=== PATIENT | female | born 1940 | race Caucasian/White ===

== ENCOUNTER 2016-12-31 06:57 | Inpatient (IN) | payer MEDICARE, OTHER ==
--- NOTE | 2016-12-25 19:18 | HP ---
HISTORY AND PHYSICAL: DATE OF ADMISSION/SURGERY: 12/31/16 DATE OF OFFICE VISIT: 12/25/16 SURGEON: Jillian Aguilar MD. PROCEDURE: Left total knee arthroplasty. CHIEF COMPLAINT: Left knee pain. HISTORY OF PRESENT ILLNESS: Ms. Estrada is a 76-year-old female with complaints of left knee pain secondary to advanced osteoarthritis. She has failed conservative management and has elected to proceed with a left total knee arthroplasty which is scheduled for 12/31/[address] Aguilar. PAST MEDICAL HISTORY: 1. Hypertension. 2. High cholesterol. 3. GERD. 4. Renal insufficiency. 5. Osteoporosis. 6. Heart murmur. PAST SURGICAL HISTORY: 1. Cataract removal. 2. Right total knee arthroplasty. 3. Left knee arthroscopy. 4. Cholecystectomy. CURRENT MEDICATIONS: 1. Diovan 80 mg once daily. 2. Clobetasol propionate emollient as needed. 3. Aspirin 81 mg daily. 4. Calcium with vitamin D daily. 5. Omeprazole 20 mg daily. 6. Multivitamin. ALLERGIES: STATINS, IBUPROFEN, CYCLOBENZAPRINE, TRAMADOL, and FLEXERIL. FAMILY HISTORY: Heart disease, diabetes, and breast cancer. SOCIAL HISTORY: She is a 76-year-old female. She lives alone. She does not smoke or use drugs. Uses occasional alcohol. REVIEW OF SYSTEMS: A complete 14-point review of systems was reviewed with the patient, was all negative or noncontributory. PHYSICAL EXAMINATION GENERAL: She is well developed, well nourished, in no acute distress. VITAL SIGNS: She stands 5 feet 4 inches tall, weighs 158 pounds. Her blood pressure is 160/75. Her heart rate is 61. HEENT: Normocephalic, atraumatic. NECK: Supple. No palpable lymph nodes. PULMONARY: The lungs are clear to auscultation bilaterally. CARDIO: Regular rate and rhythm. Strong S1, S2. ABDOMEN: Soft, nontender, nondistended. NEUROLOGICAL: She is alert and oriented x3. Cranial nerves II through XII are intact. MUSCULOSKELETAL: Left lower extremity: The skin is intact. There are no open wounds or abrasions. She has a moderate joint effusion, 10 to 130 degrees of flexion, 15 degrees valgus deformity. No varus or valgus instability, but there is MCL laxity. Her lower extremity muscle group strengths are intact at 5 /5. She has 2+ dorsalis pedis pulses and intact sensation. ASSESSMENT AND PLAN: Ms. Estrada is a 76-year-old female with complaints of left knee pain secondary to valgus-type arthritis of the left knee. She has failed conservative management and has elected to proceed with a left total knee arthroplasty which is scheduled for 12/31/[address] Aguilar discussed the risks and benefits of the surgery at today's visit and all of her questions were answered. Coumadin, Percocet, and Colace were sent to her pharmacy for postoperative pain control and DVT prophylaxis. She will see Dr. Aguilar back in 2 weeks following her surgery. LAUREL JONES [id number]/[facility] #: [id number] MTDD
[~2016-12-31 06:57] MED LIST: Buffered Lidocaine 0.9% SYRIN* 5 ML/SYR SYRINGE INTRADERM ONE; Famotidine IV* 10 MG/ML 2 ML (20 mg) IV ONE; Gabapentin CAP(*) 300 MG PO ONE
[2016-12-31] MEDS ORDERED: Famotidine IV* 10 MG/ML 2 ML (20 mg) ONE (07:11)
[2016-12-31] MEDS ORDERED: ceFAZolin 2 GM PREMIX(*) 2 GM/50 ML BAG IVPB ONE (07:11)
[2016-12-31] MEDS ORDERED: Gabapentin CAP(*) 300 MG ONE (07:11)
[2016-12-31] MEDS ORDERED: Midazolam* 1 MG/ML 5 ML VIAL (5 MG) ONE (08:01)
[2016-12-31] MEDS ORDERED: KETAMINE HCL* 50 MG/ML 10 ML VIAL ONE (08:01)
[2016-12-31] MEDS ORDERED: fentaNYL* 50 MCG/ML 2 ML VIAL (100 MCG VIAL) ONE (08:01)
[2016-12-31] MEDS ORDERED: Morphine PF AMP (0.5MG/ML)* 5 MG/10 ML AMP ONE (08:17)
[2016-12-31] MEDS ORDERED: Dexamethasone IV* 4 MG/ML 1 ML (4 MG) ONE (08:49)
[2016-12-31] MEDS ORDERED: ROPIVACAINE 5 MG/ML 30 ML BTL (0.5%) ONE (08:49)
[2016-12-31] MEDS ORDERED: Propofol* 10 MG/ML 20 ML BTL IV PUSH ONE ×2 (08:49→09:55)
[2016-12-31] MEDS ORDERED: Ondansetron INJ* 2 MG/ML VIAL ONE (08:49)
[2016-12-31] MEDS ORDERED: Phenylephrine IV* 40 MCG/ML 10 ML SYRINGE ONE (08:49)
[2016-12-31] MEDS ORDERED: Lidocaine 2% PF * 5 ML VIAL ONE (08:49)
[2016-12-31] MEDS ORDERED: Glycopyrrolate IV* 0.2 MG/ML 1 ML VIAL ONE (09:13)
[2016-12-31] MEDS ORDERED: DiMENhydriNATE IV* 50 MG/ML VIAL IV PUSH PRN (09:36)
[2016-12-31] MEDS ORDERED: HYDROmorphone* 1 MG/ML 1 ML SYR IV PRN (09:36)
[2016-12-31] MEDS ORDERED: Acetaminophen IV 1GM/100ML * 100 ML IVPB ONE (09:36)
[2016-12-31] MEDS ORDERED: oxyCODONE TAB* 5 MG TAB PO PRN ×2 (09:36→09:39)
[2016-12-31] MEDS ORDERED: Gabapentin CAP(*) 100 MG PO ONE (09:37)
[2016-12-31] MEDS ORDERED: Ondansetron INJ* 2 MG/ML VIAL IV PRN ×2 (09:39→11:00)
[2016-12-31] MEDS ORDERED: Naloxone* 0.4 MG/ML 1 ML VIAL IV PRN (09:39)
[2016-12-31] MEDS ORDERED: Nalbuphine* 20 MG/ML 1 ML VIAL IV PRN (09:39)
[2016-12-31] MEDS ORDERED: Polyethylene Glycol 3350* 17 GM PACKET PO PRN (11:00)
[2016-12-31] MEDS ORDERED: Magnesium Hydroxide LIQ* 30 ML UDC PO PRN (11:00)
[2016-12-31] MEDS ORDERED: oxyCODONE/Acetamin 5/325 MG* TAB PO PRN (11:00)
[2016-12-31] MEDS ORDERED: Acetaminophen TAB* 325 MG PO PRN (11:00)
[2016-12-31] MEDS ORDERED: diPHENhydraMINE IV* 50 MG/ML 1 ml VIAL (BENADRYL) IV PRN (11:00)
[2016-12-31] MEDS ORDERED: Bisacodyl SUPP* 10 MG SUPP PR PRN (11:00)
[2016-12-31] MEDS ORDERED: Morphine INJ* 2 MG/ML 1 ML SYRINGE IV PRN (11:00)
[2016-12-31] MEDS ORDERED: Gabapentin CAP(*) 100 MG ONE (11:17)
[2016-12-31] MEDS ORDERED: Acetaminophen IV 1GM/100ML * 100 ML ONE (11:18)
--- NOTE | 2016-12-31 11:38 | RAD ---
HISTORY: Status post left total knee plasty COMPARISONS: None VIEWS: 3, Frontal and lateral views of the left knee FINDINGS: BONE DENSITY: Normal. BONES: The patient is status post left knee arthroplasty. There is no hardware failure or osteolysis. JOINTS: The patient is status post left knee arthroplasty ALIGNMENT: There is no dislocation. SOFT TISSUES: Unremarkable. OTHER FINDINGS: There is post surgical change to the soft tissue IMPRESSION: STATUS POST LEFT KNEE ARTHROPLASTY
--- NOTE | 2016-12-31 11:43 | CONSULT ---
Subjective Date of Service: 12/31/16 Interval History: Patient seen this morning in PACU after surgery. Aside from feeling drowsy she has no complaints, not currently in any pain. In days leading up to surgery she reports she had been doing well aside from L knee and R hip pain. Family History: Findings - CAD, DM Social History: Findings - Lives at home alone, uses a cane at times, no tobacco , EtOH, drug abuse Past Medical History: Findings - HTN, HLD, GERD, renal insufficiency Review of Systems - Measurements Intake and Output: Intake and Output Last 24 Hours 12/29/16 12/30/16 12/31/16 01/01/17 06:59 06:59 06:59 06:59 Intake Total 1750 Output Total 500 Balance 1250 Weight 71.214 kg Intake: IV Fluids 1750 LR 1750 Output: Villalba 300 Estimated Blood Loss 200 - Review of Systems Constitutional Symptoms: Negative: Fever, Night Sweats Dermatology: Positive: Normal HEENT: Positive: Normal Eyes: Positive: Normal Thyroid: Positive: Normal Pulmonary: Positive: Normal Cardiology: Positive: Normal Gastroenterology: Positive: Normal Genital - Urinary: Positive: Normal Musculoskeletal: Positive: Joint Pain, Arthritis Endocrinology: Positive: Normal Neurology: Positive: Normal Psychiatry: Positive: Normal Objective Active Medications: Acetaminophen (Tylenol Tab*) 650 mg PO Q4H GIDEON Acetaminophen (Tylenol Tab*) 650 mg PO Q4H PRN Bisacodyl (Dulcolax Supp*) 10 mg [place] DAILY PRN Dimenhydrinate (Dramamine Iv*) 12.5 mg IV PUSH ONCE PRN Diphenhydramine HCl (Benadryl Iv*) 12.5 mg IV Q6H PRN Docusate Sodium (Colace Cap*) 100 mg PO BID GIDEON Enoxaparin Sodium (Lovenox(*)) 30 mg SUBCUT Q24H [facility] Famotidine (Pepcid Iv*) 20 mg IV ONCE ONE Gabapentin (Neurontin Cap(*)) 300 mg PO ONCE ONE Gabapentin (Neurontin Cap(*)) 100 mg PO ONCE ONE Hydromorphone HCl (Dilaudid Iv*) 0.2 mg IV Q5M PRN Lactated Ringer's (Lactated Ringers 1000 Ml Bag*) 1,000 mls @ 125 mls/hr IV PER RATE GIDEON Acetaminophen (Ofirmev*) 100 mls @ 400 mls/hr IVPB ONCE ONE Cefazolin Sodium 1 gm/ Sodium (Chloride) 50 mls @ 200 mls/hr IVPB Q8H GIDE[facility] Lactated Ringer's (Lactated Ringers 1000 Ml Bag*) 1,000 mls @ 100 mls/hr IV PER RATE GIDEON Lactulose (Lactulose*) 30 ml PO Q6H PRN Lidocaine/Sodium Bicarbonate (Buffered Lidocaine 0.9% Syrin*) 0.2 ml INTRADERM ONCE ONE Magnesium Hydroxide (Milk Of Magnesia Liq*) 30 ml PO Q6H PRN Morphine Sulfate (Morphine Inj (Syringe)*) 2 mg IV Q2H PRN Nalbuphine HCl (Nubain*) 5 mg IV Q6H PRN Naloxone HCl (Narcan*) 0.08 mg IV Q2M PRN Omeprazole (Prilosec Cap*) 20 mg PO QAM [facility] Ondansetron HCl (Zofran Inj*) 4 mg IV Q6H PRN Ondansetron HCl (Zofran Inj*) 4 mg IV Q6H PRN Oxycodone HCl (Roxycodone Tab*) 5 mg PO ONCE PRN Oxycodone HCl (Roxycodone Tab*) 5 mg PO Q4H PRN Oxycodone HCl (Roxycodone Tab*) 10 mg PO Q4H PRN Oxycodone/Acetaminophen (Percocet 5/325 Tab*) 1 tab PO Q3H PRN Oxycodone/Acetaminophen (Percocet 5/325 Tab*) 2 tab PO Q3H PRN Polyethylene Glycol/Electrolytes (Miralax*) 17 gm PO DAILY PRN Valsartan (Diovan Tab*) 80 mg PO QAM [facility] Warfarin Sodium (Coumadin Tab(*)) 6 mg PO ONCE@1700 ONE Vital Signs 12/31/16 12/31/16 12/31/16 07:46 11:00 11:05 Temperature 97.5 F 97.9 F Pulse Rate 66 76 64 Respiratory 18 16 12 Rate Blood Pressure 140/70 121/44 119/51 (mmHg) O2 Sat by Pulse 96 98 97 Oximetry 12/31/16 12/31/16 12/31/16 11:10 11:15 11:30 Temperature Pulse Rate 60 57 53 Respiratory 12 12 10 Rate Blood Pressure 124/55 117/60 120/52 (mmHg) O2 Sat by Pulse 99 98 98 Oximetry Oxygen Devices in Use Now: Nasal Cannula Appearance: Elderly, F, laying in bed in NAD Eyes: No Scleral Icterus Ears/Nose/Mouth/Throat: - - Dry MM Neck: NL Appearance and Movements; NL JVP Respiratory: Symmetrical Chest Expansion and Respiratory Effort, Clear to Auscultation Cardiovascular: NL Sounds; No Murmurs; No JVD, - - mild bradycardia Abdominal: NL Sounds; No Tenderness; No Distention Lymphatic: No Cervical Adenopathy Extremities: No Edema, - - L knee with dressing and cryounit in place, able to move L foot Skin: No Rash or Ulcers Neurological: Alert and Oriented x 3 Assessment/Plan - Billing S/P L TKA in a 76 yo F with hx of HTN, HLD, GERD, renal insufficiency 1) L TKA - management and analgesia as per ortho - warfarin started 2) HTN - hold Losartan for now, can resume tomorrow if BPs will tolerate 3) Renal insufficiency - baseline creatinine seems to be between 1-1.2 - BMP in AM 4) GERD - continue home PPI 5) DVT PPx - Lovenox/Warfarin
[2016-12-31] MEDS: Acetaminophen TAB* 325 MG PO SCH ×3 (15:29→21:09)
[2016-12-31] MEDS: ceFAZolin VIAL(*) 1 GM in NS 0.9% 50 ML* 50 ML IVPB SCH (16:54)
[2016-12-31] MEDS ORDERED: Warfarin TAB(*) 6 MG PO ONE (17:00)
[2016-12-31] MEDS: Docusate CAP* 100 MG PO SCH (21:09)
[2017-01-01] MEDS: ceFAZolin VIAL(*) 1 GM in NS 0.9% 50 ML* 50 ML IVPB SCH ×2 (00:15→08:42)
[2017-01-01] MEDS: oxyCODONE TAB* 5 MG TAB PO PRN ×2 (00:20→23:38)
[2017-01-01] MEDS: oxyCODONE/Acetamin 5/325 MG* TAB PO PRN ×4 (04:02→19:10)
[2017-01-01 06:17] LABS: Hematocrit 27 % (35-47); Hemoglobin 9.2 g/dl (12.0-16.0)
[2017-01-01 06:31] LABS: BUN/Creatinine Ratio 23.8 (8-20); Calcium 8.5 mg/dL (8.6-10.3); EGFR African American 68.2 (>60); Potassium 4.1 mmol/L (3.5-5.0)
--- NOTE | 2017-01-01 06:47 | PN ---
Progress Note - Progress Note Date of Service: 01/01/17 SOAP: Subjective: Pt. reports pain is controlled, and she sat up last night. Objective: LLE - drain removed, tip intact. dressing c/d/i. distally nvi. Vital Signs: Temp Pulse Resp BP Pulse Ox 97.7 F 59 16 120/47 99 01/01/17 03:51 01/01/17 03:51 01/01/17 06:02 01/01/17 03:51 01/01/17 03:51 Laboratory Results - last 24 hr 01/01/17 01/01/17 01/01/17 05:39 05:39 05:39 Hgb 9.2 L Hct 27 L INR (Anticoag Therapy) 1.06 Sodium 135 Potassium 4.1 Chloride 105 Carbon Dioxide 27 Anion Gap 3 BUN 24 Creatinine 1.01 H Est GFR ( Amer) 68.2 Est GFR (Non-Af Amer) 53.0 BUN/Creatinine Ratio 23.8 H Glucose 98 Calcium 8.5 L Assessment: 76 yo F pod 1 s/p LTKA Plan: wbat lle pt/ot 8 mg coumadin tonight, lovenox this am plan d/c to home with vns services
[2017-01-01] MEDS: Enoxaparin(*) 30 MG/0.3 ML SYR SUBCUT SCH (07:33)
[2017-01-01] MEDS: Docusate CAP* 100 MG PO SCH ×2 (08:43→20:14)
[2017-01-01] MEDS: Omeprazole CAP* 20 MG PO SCH (08:43)
--- NOTE | 2017-01-01 08:45 | PN ---
Subjective Date of Service: 01/01/17 Interval History: Patient seen this morning. Feeling well this morning. Some pain in L knee but controlled with PO medications. Had some N/V last night but tolerated breakfast today. Has had issues with constipation with narcotics in the past. Family History: Unchanged from Admission Social History: Unchanged from Admission Past Medical History: Unchanged from Admission Objective Active Medications: Acetaminophen (Tylenol Tab*) 650 mg PO Q4H PRN PRN Reason: PAIN OR TEMPERATURE Bisacodyl (Dulcolax Supp*) 10 mg [place] DAILY PRN PRN Reason: constipation Diphenhydramine HCl (Benadryl Iv*) 12.5 mg IV Q6H PRN PRN Reason: PRURITIS Docusate Sodium (Colace Cap*) 100 mg PO BID [facility] Last Admin: 12/31/16 21:09 Dose: 100 mg Enoxaparin Sodium (Lovenox(*)) 30 mg SUBCUT Q24H [facility] Last Admin: 01/01/17 07:33 Dose: 30 mg Cefazolin Sodium 1 gm/ Sodium (Chloride) 50 mls @ 200 mls/hr IVPB Q8H [facility] Stop: 01/01/17 08:44 Last Admin: 01/01/17 00:15 Dose: 200 mls/hr Lactated Ringer's (Lactated Ringers 1000 Ml Bag*) 1,000 mls @ 100 mls/hr IV PER RATE [facility] Last Admin: 12/31/16 23:05 Dose: 100 mls/hr Lactulose (Lactulose*) 30 ml PO Q6H PRN PRN Reason: constipation Magnesium Hydroxide (Milk Of Magnesia Liq*) 30 ml PO Q6H PRN PRN Reason: constipation Morphine Sulfate (Morphine Inj (Syringe)*) 2 mg IV Q2H PRN PRN Reason: PAIN Omeprazole (Prilosec Cap*) 20 mg PO QAM [facility] Ondansetron HCl (Zofran Inj*) 4 mg IV Q6H PRN PRN Reason: nausea Oxycodone HCl (Roxycodone Tab*) 10 mg PO Q4H PRN PRN Reason: SEVERE PAIN Last Admin: 01/01/17 00:20 Dose: 10 mg Oxycodone/Acetaminophen (Percocet 5/325 Tab*) 1 tab PO Q3H PRN PRN Reason: PAIN - MODERATE Oxycodone/Acetaminophen (Percocet 5/325 Tab*) 2 tab PO Q3H PRN PRN Reason: PAIN - MODERATE Last Admin: 01/01/17 07:31 Dose: 2 tab Pharmacy Profile Note (Coumadin Daily Reminder*) 1 note FOLLOW UP 1700 GIDEON Polyethylene Glycol/Electrolytes (Miralax*) 17 gm PO DAILY PRN PRN Reason: Constipation Warfarin Sodium (Coumadin Tab(*)) 8 mg PO ONCE@1700 ONE PRN Reason: Protocol Stop: 01/01/17 17:01 Vital Signs 12/31/16 12/31/16 12/31/16 11:00 11:05 11:10 Temperature 97.9 F Pulse Rate 76 64 60 Respiratory 16 12 12 Rate Blood Pressure 121/44 119/51 124/55 (mmHg) O2 Sat by Pulse 98 97 99 Oximetry 01/01/17 01/01/17 01/01/17 02:20 03:51 04:02 Temperature 97.7 F Pulse Rate 59 Respiratory 16 16 16 Rate Blood Pressure 120/47 (mmHg) O2 Sat by Pulse 99 Oximetry 01/01/17 01/01/17 01/01/17 06:02 07:24 07:31 Temperature 97.6 F Pulse Rate 68 Respiratory 16 16 16 Rate Blood Pressure 109/46 (mmHg) O2 Sat by Pulse 96 Oximetry Oxygen Devices in Use Now: None Appearance: Elderly, F, laying in bed in NAD Eyes: No Scleral Icterus Ears/Nose/Mouth/Throat: Mucous Membranes Moist Neck: NL Appearance and Movements; NL JVP Respiratory: Symmetrical Chest Expansion and Respiratory Effort, Clear to Auscultation Cardiovascular: NL Sounds; No Murmurs; No JVD, RRR Abdominal: NL Sounds; No Tenderness; No Distention Lymphatic: No Cervical Adenopathy Extremities: No Edema, - - L knee with dressing, cryo-unit in place Neurological: Alert and Oriented x 3 Result Diagrams: 01/01/17 05:39 01/01/17 05:39 Assess/Plan/Problems-Billing S/P L TKA in a 76 yo F with hx of HTN, HLD, GERD, renal insufficiency 1) L TKA - management and analgesia as per ortho - will add scheduled senna and miralax in addition to docusate, prns available as well - Hb down to 9.2 this AM, continue to monitor H/H daily - on warfarin 2) HTN - continue to hold Losartan for now, BPs adequate 3) Renal insufficiency - stable - baseline creatinine seems to be between 1-1.2 4) GERD - continue home PPI 5) DVT PPx - Lovenox/Warfarin
[2017-01-01] MEDS ORDERED: Valsartan TAB* 80 MG PO SCH (09:00)
[2017-01-01] MEDS: Polyethylene Glycol 3350* 17 GM PACKET PO SCH (12:53)
[2017-01-01] MEDS: Senna TAB PO SCH (12:53)
--- NOTE | 2017-01-01 15:54 | OP ---
DATE OF OPERATION: 12/31/16 - ROOM #347 DATE OF : 36 ATTENDING SURGEON: Jillian Aguilar MD. HOTEL ROOM ATTENDANT: LAUREL Gaspar. Ms. Olivares did help throughout the procedure with preparation of the leg, wound retraction, manipulation of the knee, and wound closure. ANESTHESIOLOGIST: Dr. Stone. ANESTHESIA: Spinal with adductor nerve block. PRE-OP DIAGNOSIS: Severe end-stage degenerative osteoarthritis of the left knee joint with valgus deformity. POST-OP DIAGNOSIS: Severe end-stage degenerative osteoarthritis of the left knee joint with valgus deformity. OPERATIVE PROCEDURE: Left total knee arthroplasty. ESTIMATED BLOOD LOSS: 200 cc. TOURNIQUET TIME: 56 minutes. COMPLICATIONS: None. SPECIMEN: Bone and cartilage from the left knee joint sent to Pathology. HARDWARE USED: Cemented [employer] total knee hardware. Two packages of Simplex bone cement. For the femur, a size 4 narrow left Oxinium femoral component; for the tibia a size 3 left tibial base plate; for the insert a 9 mm posterior stabilized articular insert; and for the patella a 29 mm 7.5 thickness 3-peg all-poly patella. BRIEF HISTORY/INDICATION: Ms. Estrada is a 76-year-old female with years of increasingly severe left knee pain and valgus deformity due to the osteoarthritis. She failed conservative treatment with anti-inflammatories, pain medication, physical therapy and intra-articular injections. She developed increasingly severe valgus deformity. Due to continued pain and decreased quality of life, the patient elected to undergo left total knee arthroplasty. Informed consent was obtained from the patient. She understood the risks of procedure included, but were not limited to bleeding, infection, damage to nearby structures, continued pain, need for further surgery, intraoperative fracture, nerve palsy, hardware failure or loosening, knee stiffness, loss of motion, stroke, heart attack, blood clot, and . She wished to proceed. INTRAOPERATIVE FINDINGS: Intraoperatively, the patient was noted to have 10 degrees valgus deformity which was corrected to 3 degrees of anatomic valgus. She had 10 degrees of flexion contracture and 130 degrees of flexion. Postoperative range of motion with full extension to 130 degrees of flexion. 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 She had severe full thickness loss of cartilage along the lateral and patellofemoral compartments. DESCRIPTION OF PROCEDURE: Ms. Estrada was identified in the preanesthesia unit. Her left lower extremity was marked as the correct operative side. Informed consent was signed and placed in the chart. The patient was taken to the operating room and placed under spinal anesthesia with an adductor nerve block. A Villalba catheter was placed. Tourniquet was placed on the left thigh. Left lower extremity was prepped and draped in the usual sterile fashion. Preop time-out was made to correctly identify the patient's side and site. Appropriate perioperative antibiotics were given within 1 hour of incision. A 12-cm midline incision was made with a 10-blade and carried down to the extensor mechanism. A new 10-blade was used to make a standard medial parapatellar arthrotomy and the patella was subluxed laterally. Electrocautery was used to subperiosteally elevate the soft tissue off the superomedial tibia to the mid sagittal plane. The knee was flexed up. Anterior horn of the lateral meniscus and ACL were sharply released. A drill was used to enter the distal femur. Intra-medullary distal femoral cutting block was pinned down the distal femur. Lateral femoral condylar hypoplasia was noted and accounted for. Oscillating saw was used to make the distal femoral cut. The external rotation guide was pinned down the distal femur. The femur was sized to a size 4. Size 4 multi-cutting jig was pinned down the distal femur. Oscillating saw was used to make the appropriate chamfer cuts. All bony fragments were carefully removed. The PCL was completely released. The tibia was subluxed anteriorly. The extramedullary tibial cutting guide was placed on the proximal tibia and pinned into position. Oscillating saw was used to make the proximal tibial cut perpendicular to the mechanical axis of the tibia. The bone was carefully removed. The knee was brought out into full extension. Spacer block had tightness laterally. The knee was flexed up. Lamina associate director financial aid was placed both medially and laterally. Any remaining meniscus was carefully removed using electrocautery. Any posterior osteophytes were removed with a curette rongeur. Tibial tray and drop chinedu were placed. It was noted that the cut of the proximal tibia was valgus. Intramedullary tibial cutting guide was then pinned into position and approximately 2 mm of medial bone were removed with an oscillating saw. Tibial tray and drop chinedu showed tibial cut to be perpendicular to mechanical axis of the tibia and satisfactory. A trial size 4 narrow left femoral trial was impacted onto the left distal femur. This implant had excellent fit and stability. The box for the posterior stabilized implant was prepared using a reamer and box cut osteotome. Size 3 tibial trial and 9-mm insert trial was placed. The knee was taken through a range of motion and had full extension to 130 degrees of flexion. There was some tightness laterally. Minimal pie crusting technique was performed with a 15 blade along the lateral tight ligaments. Medial and lateral ligamentous balancing was much improved. Flexion and extension gap was well balanced. There was satisfactory patellofemoral tracking. The patella was everted. A 7 mm of patellar bone and cartilage was carefully removed using an oscillating saw. The patella was sized to a size 29. Three peg holes were drilled through the size 29 guide. Trial 29 patella with 7.5 thickness was placed. The knee was taken through a range of motion and there was satisfactory patellofemoral tracking. All trials were carefully removed. The tibia was subluxed anteriorly and sized to a size 3. Proximal tibia was prepared using a size 3 keel punch. All bony cut surfaces were copiously irrigated with sterile saline and dried. Final implants were cemented into place starting with the tibia followed by the femur and last the patella. A 9 mm insert trial was placed while the knee was brought into full extension. Tourniquet was turned down at 56 minutes. The knee was copiously irrigated with sterile saline. Once the cement had fully cured, the insert trial was removed. Any excess cement was carefully removed from around the joint and capsule. Electrocautery was used to obtain meticulous hemostasis. Final insert chosen was a 9-mm posterior stabilized articular insert size 3-4. This was locked into position on the tibial tray without difficulty. Stability of the insert was checked and rechecked and noted to be stable. The knee was copiously irrigated with sterile saline. The extensor mechanism was closed over a medium Hemovac drain using interrupted #1 Vicryl. The rest of the incision was closed in a layered fashion using 0 and 2-0 Vicryl. Skin was closed using running 3-0 nylon suture. Sterile Xeroform, 4x4's, and Webril were placed over the incision. Anesthesia was reversed without difficulty. She was taken to the PACU in stable condition. Intended weightbearing will be weight bearing as tolerated. Intended DVT prophylaxis will be Coumadin with a Lovenox bridge. [id number]/[facility] #: [id number] [facility]
[2017-01-01] MEDS ORDERED: Warfarin TAB(*) 4 MG PO ONE (17:00)
[2017-01-02] MEDS: oxyCODONE/Acetamin 5/325 MG* TAB PO PRN ×3 (03:52→12:15)
[2017-01-02 08:32] LABS: Hematocrit 26 % (35-47); Hemoglobin 8.8 g/dl (12.0-16.0)
--- NOTE | 2017-01-02 08:42 | PN ---
Progress Note - Progress Note Date of Service: 01/02/17 SOAP: Subjective: Pt. is alert, pain well controlled. Objective: LLE - dressing changed, inc c/d/i. distally nvi. Vital Signs: Temp Pulse Resp BP Pulse Ox 98.0 F 71 17 138/57 95 01/02/17 07:14 01/02/17 07:14 01/02/17 07:14 01/02/17 07:14 01/02/17 07:14 Laboratory Results - last 24 hr 01/02/17 01/02/17 07:54 07:54 Hgb 8.8 L Hct 26 L INR (Anticoag Therapy) 1.23 H Assessment: 76 yo F pod 2 s/p LTKA Plan: wbat pt/ot 6 mg coumadin tonight, give lovenox dose this am d/c to home today
[2017-01-02] MEDS: Senna TAB PO SCH (08:58)
[2017-01-02] MEDS: Polyethylene Glycol 3350* 17 GM PACKET PO SCH (08:58)
[2017-01-02] MEDS: Omeprazole CAP* 20 MG PO SCH (09:05)
[2017-01-02] MEDS: Enoxaparin(*) 30 MG/0.3 ML SYR SUBCUT SCH (09:06)
[2017-01-02] MEDS: Docusate CAP* 100 MG PO SCH (09:06)
[2017-01-02 11:30] VITALS: BP 132/58
--- NOTE | 2017-01-02 12:50 | DS ---
DATE OF ADMISSION: 12/31/2016. DATE OF DISCHARGE: 01/02/2017. SURGEON: Dr. Jillian Aguilar. PRINCIPAL DIAGNOSIS: Severe end-stage osteoarthritis of the left knee. DISCHARGE DIAGNOSIS: Severe end-stage osteoarthritis of the left knee. HISTORY OF PRESENT ILLNESS: Ms. Estrada is a 76-year-old female with complaints of left knee pain. She failed conservative management and elected to proceed with a left total knee arthroplasty. HOSPITAL COURSE: Ms. Estrada is a 76-year-old female. She was admitted electively to the hospital on 12/31/2016 and underwent a left total knee arthroplasty. She tolerated the procedure well with no complications. Postoperative, she was placed on Lovenox and Coumadin for DVT prophylaxis. On pos top day one, her H and H was 9 and 27 and on postop day two, 8.8 and 26. Her INR went from 1.06 to 1.23 at the time of discharge. She was discharged to home on 01/02/2017 in stable condition and ask ed to follow-up with Dr. Aguilar in two weeks. DISCHARGE MEDICATIONS: 1. Percocet 5/325 one to two tabs every 4 to 6 hours. 2. Coumadin 2 mg. 3. Colace 100 mg twice a day. 4. Omeprazole 20 mg every day. PHYSICAL EXAMINATION: Upon discharge, the patient is afebrile, ambulating well with the aid of a wa lker. The incision is clean, dry and healing well. Her lower extremity muscle group strengths were intact at 5/5. She has 2+ dorsalis pedis pulse and intact sensation. DISCHARGE INSTRUCTIONS: She was discharged to home. She was given a prescription for Percocet 5/32 5. She can take one to two pills every four to six hours as needed for pain. She was also given a prescription for Coumadin to take every night at 5:00. Her Coumadin dosing for the next three days is 6, 6, 4. She was asked to take 6 mg tonight, 6 mg Friday night, 4 mg Friday night and 4 mg Fri day night. She will have her INR rechecked on Friday. She is weightbearing as tolerated and she wi ll follow-up with Dr. Aguilar in two weeks. LAUREL JONES [id number]/[facility] #: [id number]
== END 2017-01-02 12:40 | disposition home health service (06) | DRG 470 ==
LOC: AA 06:57 → SSU 11:00
PROVIDERS: ADMIT Orthopaedic Surgery Adult Reconstructive Orthopaedic Surgery; ATTEND Orthopaedic Surgery Adult Reconstructive Orthopaedic Surgery
PROC: 0SRD0J9 Replacement of Left Knee Joint with Synthetic Substitute, Cemented, Open Approach (ICD-10-PCS; principal; 2016-12-31 08:00)
DX: M17.12 Unilateral primary osteoarthritis, left knee (principal); I10 Essential (primary) hypertension; Z79.01 Long term (current) use of anticoagulants; E78.00 Pure hypercholesterolemia, unspecified; E78.5 Hyperlipidemia, unspecified; N28.9 Disorder of kidney and ureter, unspecified; K21.9 Gastro-esophageal reflux disease without esophagitis; M81.0 Age-related osteoporosis without current pathological fracture; M21.062 Valgus deformity, not elsewhere classified, left knee; Z96.651 Presence of right artificial knee joint; R11.2 Nausea with vomiting, unspecified; Z98.49 Cataract extraction status, unspecified eye; Z88.8 Allergy status to other drugs, medicaments and biological substances; Z82.49 Family history of ischemic heart disease and other diseases of the circulatory system; Z83.3 Family history of diabetes mellitus; Z80.3 Family history of malignant neoplasm of breast
CPT/HCPCS: 36415; 80048; 85014; 85018; 85610; 88305; 88311; A9270-GY; C1776; J0690; J1100; J1650; J2250; J2405; J2704; J2795; J3010

== ENCOUNTER 2023-02-14 08:22 | Observation (INO) ==
[2023-02-14 09:25] LABS: ABS Eosinophils 0.1 10^3/uL (0.0-0.5); ABS Lymphocytes 1.1 10^3/uL (1.0-4.8); ABS Monocytes 0.7 10^3/uL (0.0-0.9); ABS Neutrophils 5.4 10^3/uL (1.5-7.6); Eosinophil % 1.2 %; Hematocrit 28.7 % (35-45); Hemoglobin 9.6 g/dL (11.5-14.3); Lymphocyte % 14.4 %; Mean Corpuscular Hemoglobin 27.5 pg (27-33); Mean Corpuscular Hgb Conc 33.4 g/dL (31-36); Mean Corpuscular Volume 82.3 fL (80-97); Mean Platelet Volume 6.7 fL (7.5-11.2); Platelet Count 429 10^3/uL (150-450); Red Blood Count 3.49 10^6/uL (3.63-4.92); Red Cell Distribution Width 19.1 % (12-17); White Blood Count 7.3 10^3/uL (3.8-11.8)
[2023-02-14 09:32] LABS: INR 1.05 (0.88-1.18)
[2023-02-14 09:38] LABS: Albumin 4.1 g/dL (3.2-5.2); Albumin/Globulin Ratio 1.3 (1-3); Calcium 9.2 mg/dL (8.6-10.3); Creatinine, Serum 1.59 mg/dL (0.51-0.95); Globulin 3.1 g/dL (2-4); Potassium 4.3 mmol/L (3.5-5.0); Total Bilirubin 0.4 mg/dL (0.2-1.0); Total Protein 7.2 g/dL (6.4-8.9); eGFR CKD-EPI 31.8 (>60)
[2023-02-14 11:01] LABS: High Sensitivity Troponin 1 Hr 13 pg/mL (<15)
[2023-02-14 17:38] LABS: Magnesium 2.2 mg/dL (1.9-2.7)
[2023-02-14] MEDS: dilTIAZem 30 MG TAB PO SCH ×2 (18:49→23:10)
[2023-02-14 19:29] LABS: Ferritin 11.9 ng/mL (11-307)
[2023-02-14] MEDS: Heparin 5000 UNITS/ML 1 mL VIAL SUBCUT SCH (23:09)
[2023-02-15] MEDS: Heparin 5000 UNITS/ML 1 mL VIAL SUBCUT SCH ×2 (05:33→16:25)
[2023-02-15] MEDS: dilTIAZem 30 MG TAB PO SCH ×3 (05:33→16:46)
[2023-02-15 07:55] LABS: ABS Basophils 0.1 10^3/uL (0.0-0.1); ABS Eosinophils 0.1 10^3/uL (0.0-0.5); ABS Lymphocytes 1.1 10^3/uL (1.0-4.8); ABS Monocytes 0.7 10^3/uL (0.0-0.9); ABS Neutrophils 3.4 10^3/uL (1.5-7.6); ABS Nucleated RBC 0.01 10^3/ul; Eosinophil % 2.5 %; Hematocrit 27.1 % (35-45); Hemoglobin 9.2 g/dL (11.5-14.3); Lymphocyte % 20.7 %; Mean Corpuscular Hemoglobin 28.1 pg (27-33); Mean Corpuscular Hgb Conc 33.9 g/dL (31-36); Mean Corpuscular Volume 82.7 fL (80-97); Mean Platelet Volume 7.1 fL (7.5-11.2); Nucleated Red Blood Cells % 0.1 /100 WBC (0.0-0.4); Platelet Count 401 10^3/uL (150-450); Red Blood Count 3.28 10^6/uL (3.63-4.92); Red Cell Distribution Width 19.1 % (12-17); White Blood Count 5.3 10^3/uL (3.8-11.8)
[2023-02-15 08:13] LABS: Creatinine, Serum 1.47 mg/dL (0.51-0.95); Magnesium 2.1 mg/dL (1.9-2.7); Potassium 4.8 mmol/L (3.5-5.0)
[2023-02-15] MEDS ORDERED: Iron Sucrose 200 MG in NS 0.9% 100 ml BAG 100 ML IVPB SCH (09:00)
[2023-02-15 10:34] VITALS: BP 126/47
== END 2023-02-15 17:00 | disposition home or self-care (01) ==
LOC: ED 08:22 → EDHOLD 08:22 → MEDTELE 19:46
PROVIDERS: ADMIT Student in an Organized Health Care Education/Training Program; ATTEND Student in an Organized Health Care Education/Training Program